=== PATIENT | female | born 1985 | race Caucasian/White ===

== ENCOUNTER 2016-06-24 20:33 | Emergency (ER) | payer OTHER ==
--- NOTE | 2016-06-24 21:01 | ER Document Report ---
ED Medical Screen (RME) - General Chief Complaint: Numbness Stated Complaint: BODY NUMBNESS Mode of Arrival: Ambulatory Information source: Patient Notes: 31-year-old female presents to the emergency department complaining of episode of confusion, right-sided peripheral vision loss, and right hand numbness approximately an hour and a half ago. Reports all symptoms have resolved except the right hand numbness and states still feels like her head is "hazy". Reports is approximately 9 weeks , , denies abdominal pain, vaginal bleeding or discharge. I have greeted and performed a rapid initial assessment of this patient. A comprehensive ED assessment and evaluation of the patient, analysis of test results and completion of the medical decision making process will be conducted by additional ED providers. TRAVEL OUTSIDE OF THE [place] IN LAST 30 DAYS: No - Related Data Allergies/Adverse Reactions: Penicillins Allergy (Verified 04/10/15 05:43) Past Medical History - Social History Chew tobacco use (# tins/day): No Frequency of alcohol use: None Drug Abuse: None Renal/ Medical History: Denies: Hx Peritoneal Dialysis Physical Exam - Vital signs Vitals: Temp Pulse Resp BP Pulse Ox 98.2 F 73 18 106/64 100 06/24/16 20:39 06/24/16 20:39 06/24/16 20:39 06/24/16 20:39 06/24/16 20:39 - General General appearance: Appears well, Alert In distress: None - Neurological Neuro grossly intact: Yes Cognition: Normal Orientation: AAOx4 Alex Coma Scale Eye Opening: Spontaneous [place] Coma Scale Verbal: Oriented [place] Coma Scale Motor: Obeys Commands Alex Coma Scale Total: 15 Speech: Normal Cranial nerves: Normal Cerebellar coordination: Normal Motor strength normal: LUE, RUE, LLE, RLE 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 Vital who recommends head CT in addition to basic labwork at this time. - Vital Signs Vital signs: Temp Pulse Resp BP Pulse Ox 98.2 F 73 18 106/64 100 06/24/16 20:39 06/24/16 20:39 06/24/16 20:39 06/24/16 20:39 06/24/16 20:39
[2016-06-24 21:09] LABS: ABSOLUTE EOSINOPHILS # (AUTO) 0.1 10^3/uL (0.0-0.6); ABSOLUTE LYMPHOCYTES (AUTO) 2.3 10^3/uL (0.5-4.7); ABSOLUTE MONOCYTES (AUTO) 0.6 10^3/uL (0.1-1.4); BASOPHILS % (AUTO) 0.5 % (0-2); EOSINOPHILS % (AUTO) 1.5 % (0-6); HEMATOCRIT 35.9 % (36.0-47.0); HEMOGLOBIN 12.4 g/dL (12.0-15.5); HGB HCT DIFFERENCE 1.3; LYMPHOCYTES % (AUTO) 32.2 % (13-45); MEAN CORPUSCULAR HEMOGLOBIN 29.5 pg (27.0-33.4); MEAN CORPUSCULAR HGB CONC 34.6 g/dL (32.0-36.0); MEAN CORPUSCULAR VOLUME 85 fl (80-97); MONOCYTES % (AUTO) 9.2 % (3-13); RED BLOOD COUNT 4.22 10^6/uL (3.72-5.28); RED CELL DISTRIBUTION WIDTH 12.7 % (11.5-14.0); SEGMENTED NEUTROPHILS % (AUTO) 56.6 % (42-78)
[2016-06-24 21:16] LABS: APPEARANCE,URINE CLEAR; BILIRUBIN,URINE NEGATIVE (NEGATIVE); GLUCOSE, URINE NEGATIVE (NEGATIVE); KETONES,URINE NEGATIVE (NEGATIVE); LEUKOCYTE ESTERASE,URINE TRACE (NEGATIVE); NITRITE,URINE NEGATIVE (NEGATIVE); PROTEIN,URINE NEGATIVE (NEGATIVE); URINE SPECIFIC GRAVITY 1.027; UROBILINOGEN,URINE NEGATIVE mg/dL (<2.0)
[2016-06-24 21:27] LABS: ALANINE AMINOTRANSFERASE 37 U/L (9-52); ALBUMIN 3.9 g/dL (3.5-5.0); ALKALINE PHOSPHATASE 41 U/L (38-126); ANION GAP 13 (5-19); ASPARTATE AMINO TRANSFERASE 22 U/L (14-36); BILIRUBIN,TOTAL 0.2 mg/dL (0.2-1.3); BLOOD UREA NITROGEN 16 mg/dL (7-20); CALCIUM 9.8 mg/dL (8.4-10.2); CARBON DIOXIDE 24 mmol/L (22-30); CHLORIDE 102 mmol/L (98-107); CREATININE RESULT 0.67 mg/dL (0.52-1.25); GLUCOSE 107 mg/dL (75-110); MAGNESIUM 1.8 mg/dL (1.6-2.3); POTASSIUM 3.7 mmol/L (3.6-5.0); SODIUM 138.8 mmol/L (137-145); TOTAL PROTEIN 6.9 g/dL (6.3-8.2)
--- NOTE | 2016-06-25 01:23 | ER Document Report ---
ED General - General Chief Complaint: Numbness Stated Complaint: BODY NUMBNESS Mode of Arrival: Ambulatory Notes: Patient is a 31-year-old female, at 9 weeks gestation, that comes emergency department for chief complaint of an episode earlier where she felt like she was losing her peripheral vision first in the right and then left eye, she states she felt very tired and and difficulty thinking and finding words, she states that she started feeling like she had a mild headache, and she states that she sat down and ate something. She states that her vision improved , she states that afterward she started feeling a tingling sensation in her right hand which also resolved. Entire episode of all symptoms lasted about 45 minutes. Patient denies any current symptoms or symptoms since that time. Patient is on vitamins, does not smoke, denies any past medical history otherwise including denying any blood clots personally or in her family that she knows about. TRAVEL OUTSIDE OF THE [place] IN LAST 30 DAYS: No - Related Data Allergies/Adverse Reactions: Penicillins Allergy (Verified 04/10/15 05:43) Past Medical History - General Information source: Patient - Social History Smoking Status: Former Smoker Chew tobacco use (# tins/day): No Frequency of alcohol use: None Drug Abuse: None Lives with: Family Family History: Reviewed & Not Pertinent Patient has suicidal ideation: No Patient has homicidal ideation: No - Medical History Medical History: Negative Renal/ Medical History: Denies: Hx Peritoneal Dialysis Surgical Hx: Negative - Immunizations Immunizations up to date: Yes Hx Diphtheria, Pertussis, Tetanus Vaccination: Yes Review of Systems - Review of Systems Constitutional: No symptoms reported EENT: No symptoms reported Cardiovascular: See HPI Respiratory: No symptoms reported Gastrointestinal: No symptoms reported Genitourinary: No symptoms reported Female Genitourinary: No symptoms reported Musculoskeletal: See HPI Skin: No symptoms reported Hematologic/Lymphatic: No symptoms reported Neurological/Psychological: See HPI Physical Exam - Vital signs Vitals: Temp Pulse Resp BP Pulse Ox 98.2 F 73 18 106/64 100 06/24/16 20:39 06/24/16 20:39 06/24/16 20:39 06/24/16 20:39 06/24/16 20:39 Interpretation: Normal - General General appearance: Appears well, Alert In distress: None - Patient smiling, alert, does have a couple of dark circles under her eyes but is otherwise very well-appearing - HEENT Head: Normocephalic, Atraumatic Eyes: Normal Conjunctiva: Normal Extraocular movements intact: Yes Eyelashes: Normal Pupils: PERRL Sinus: Normal Nasal: Normal Mouth/Lips: Normal Mucous membranes: Normal Pharynx: Normal Neck: Normal - Respiratory Respiratory status: No respiratory distress Chest status: Nontender Breath sounds: Normal. No: Decreased air movement, Nonproductive cough, Wheezing Chest palpation: Normal - Cardiovascular Rhythm: Regular. No: Tachycardia Heart sounds: Normal auscultation, S1 appreciated, S2 appreciated Murmur: No - Abdominal Inspection: Normal Distension: No distension Bowel sounds: Normal Tenderness: Nontender - Soft and benign abdomen, nontender. No: Tender, Guarding Organomegaly: No organomegaly - Back Back: Normal, Nontender - Extremities General upper extremity: Normal inspection, Normal ROM, Normal strength, Normal temperature General lower extremity: Normal inspection, Normal ROM, Normal strength, Normal temperature - Neurological Neuro grossly intact: Yes Cognition: Normal Orientation: AAOx4 Alex Coma Scale Eye Opening: Spontaneous [place] Coma Scale Verbal: Oriented Alex Coma Scale Motor: Obeys Commands [place] Coma Scale Total: 15 Speech: Normal Cranial nerves: Normal Cerebellar coordination: Normal Motor strength normal: LUE, RUE, LLE, RLE Additional motor exam normals: Equal firer retort Sensory: Normal - Psychological Associated symptoms: Normal affect, Normal mood - Skin Skin Temperature: Warm Skin Moisture: Dry Skin Color: Normal Course - Re-evaluation Re-evalutation: Patient is very well-appearing, smiling and laughing, does appear slightly fatigued but otherwise is very well-appearing. I have low suspicion of TIA in this patient based on her symptoms which seemed to change from one symptom to another and then resolved after she sat down and ate, especially since she has been 3 times before with no coagulopathy, she does not smoke, she has no past medical history, and she is young and otherwise healthy. Neurological exam is completely normal. CAT scan imaging performed in triage reviewed and shows no abnormalities. Patient has remained asymptomatic after arrival to the emergency department she tells me. Patient recommended to perform a close follow-up with her GALVANOMETER ASSEMBLER, discussed return precautions, patient states understanding and agreement. - Vital Signs Vital signs: Temp Pulse Resp BP Pulse Ox 98.8 F 75 18 101/68 100 06/25/16 02:01 06/25/16 02:01 06/25/16 02:01 06/25/16 02:01 06/25/16 02:01 - Laboratory Result Diagrams: 06/24/16 20:50 06/24/16 20:50 Laboratory results interpreted by me: 06/24/16 06/24/16 20:50 20:50 Hct 35.9 L Ur Leukocyte Esterase TRACE H Discharge - Discharge Clinical Impression: Paresthesias, Blurred vision Condition: Stable Disposition: HOME, SELF-CARE Additional Instructions: CAT scan of the head is normal, lab work shows mild dehydration but is otherwise unremarkable, neurological exam is normal. Symptoms are nonspecific, possibilities include a low blood sugar, fatigue, complex migraine, blood redistribution in , or other uncertain causes of your symptoms. Hydrate, increase rest, follow up with GALVANOMETER ASSEMBLER. If symptoms return lie down and elevate your feet first. Return to the emergency department for any returned or concerning worsening symptoms. Forms: Return to Work
[2016-06-25 02:04] VITALS: BP 101/68
== END 2016-06-25 02:05 | disposition home or self-care (01) ==
LOC: ER 20:33
DX: O26.891 Other specified pregnancy related conditions, first trimester (principal); R20.2 Paresthesia of skin; H53.8 Other visual disturbances; O26.811 Pregnancy related exhaustion and fatigue, first trimester; Z3A.09 9 weeks gestation of pregnancy; Z87.891 Personal history of nicotine dependence
CPT/HCPCS: 36415; 70450; 80053; 81001; 83735; 85025; 99284

== ENCOUNTER 2016-08-14 13:23 | Emergency (ER) | payer OTHER ==
[2016-08-14] MEDS ORDERED: NORMAL SALINE 1000 ML 1,000 ML IV ONE ×2 (13:36→13:44)
[2016-08-14] MEDS ORDERED: ONDANSETRON HCL INJ/PF 4 MG/2 ML SDV IV ONE (13:37)
--- NOTE | 2016-08-14 13:39 | ER Document Report ---
ED Medical Screen (RME) - General Chief Complaint: Nausea/Vomiting Stated Complaint: VOMITING Notes: Patient is approximately 16 weeks , G3, P1, A1, and has vomited in excess of 10 times this morning. Does not have any significant abdominal pain. No diarrhea. No fevers. No UTI symptoms. No vaginal bleeding. TRAVEL OUTSIDE OF THE [place] IN LAST 30 DAYS: No - Related Data Allergies/Adverse Reactions: Penicillins Allergy (Verified 04/10/15 05:43) Past Medical History Renal/ Medical History: Denies: Hx Peritoneal Dialysis - Immunizations Immunizations up to date: Yes Hx Diphtheria, Pertussis, Tetanus Vaccination: Yes Physical Exam - Vital signs Vitals: Temp Pulse Resp BP Pulse Ox 98.2 F 88 16 98/65 L 100 08/14/16 13:27 08/14/16 13:27 08/14/16 13:27 08/14/16 13:27 08/14/16 13:27 Course - Vital Signs Vital signs: Temp Pulse Resp BP Pulse Ox 98.2 F 88 16 98/65 L 100 08/14/16 13:27 08/14/16 13:27 08/14/16 13:27 08/14/16 13:27 08/14/16 13:27
[2016-08-14] MEDS ORDERED: METOCLOPRAMIDE HCL INJ/PF 10 MG/2 ML SDV IV ONE (13:44)
[2016-08-14 14:06] LABS: APPEARANCE,URINE SLIGHTLY-CLOUDY; BILIRUBIN,URINE NEGATIVE (NEGATIVE); GLUCOSE, URINE NEGATIVE (NEGATIVE); KETONES,URINE 80 mg/dL (NEGATIVE); LEUKOCYTE ESTERASE,URINE NEGATIVE (NEGATIVE); NITRITE,URINE NEGATIVE (NEGATIVE); PROTEIN,URINE 30 mg/dL (NEGATIVE); URINE SPECIFIC GRAVITY 1.032; UROBILINOGEN,URINE NEGATIVE mg/dL (<2.0)
--- NOTE | 2016-08-14 14:07 | ER Document Report ---
ED General - General Chief Complaint: Nausea/Vomiting Stated Complaint: VOMITING Mode of Arrival: Ambulatory Information source: Patient Notes: 31-year-old female who is 16 weeks 2 para 1 presents with complaints of multiple episodes of vomiting today. Patient admits to epigastric pain, denies any uterine pain. Denies any vaginal bleeding discharge or urinary complaints. Patient denies any fevers or chills. Patient does not have any nausea medication at home. TRAVEL OUTSIDE OF THE [place] IN LAST 30 DAYS: No - HPI Onset: This morning Onset/Duration: Sudden Quality of pain: Achy Severity: Mild Pain Level: 1 Associated symptoms: Nausea, Vomiting Exacerbated by: Denies Relieved by: Denies Similar symptoms previously: No Recently seen / treated by doctor: No - Related Data Allergies/Adverse Reactions: Penicillins Allergy (Verified 04/10/15 05:43) Past Medical History - Social History Smoking Status: Never Smoker Cigarette use (# per day): No Chew tobacco use (# tins/day): No Smoking Education Provided: No Family History: Reviewed & Not Pertinent Renal/ Medical History: Denies: Hx Peritoneal Dialysis - Immunizations Immunizations up to date: Yes Hx Diphtheria, Pertussis, Tetanus Vaccination: Yes Review of Systems - Review of Systems Notes: REVIEW OF SYSTEMS: CONSTITUTIONAL : Denies fever, chills, or sweats. Denies recent illness. EENT: Denies eye, ear, throat, or mouth pain or symptoms. Denies nasal or sinus congestion or discharge. Denies throat, tongue, or mouth swelling or difficulty swallowing. CARDIOVASCULAR: Denies chest pain. Denies palpitations or racing or irregular heart beat. Denies ankle edema. RESPIRATORY: Denies cough, cold, or chest congestion. Denies shortness of breath, difficulty breathing, or wheezing. GASTROINTESTINAL: Admits nausea vomiting GENITOURINARY: Denies difficulty urinating, painful urination, burning, frequency, blood in urine, or discharge. FEMALE GENITOURINARY: Denies vaginal bleeding, heavy or abnormal periods, irregular periods. Denies vaginal discharge or odor. MUSCULOSKELETAL: Denies back or neck pain or stiffness. Denies joint pain or swelling. SKIN: Denies rash, lesions or sores. HEMATOLOGIC : Denies easy bruising or bleeding. LYMPHATIC: Denies swollen, enlarged glands. NEUROLOGICAL: Denies confusion or altered mental status. Denies passing out or loss of consciousness. Denies dizziness or lightheadedness. Denies headache. Denies weakness or paralysis or loss of use of either side. Denies problems with gait or speech. Denies sensory loss, numbness, or tingling. Denies seizures. PSYCHIATRIC: Denies anxiety or stress. Denies depression, suicidal ideation, or homicidal ideation. ALL OTHER SYSTEMS REVIEWED AND NEGATIVE. Dictation was performed using [employer] voice recognition software PHYSICAL EXAMINATION: GENERAL: Well-appearing, well-nourished and in no acute distress. HEAD: Atraumatic, normocephalic. EYES: Pupils equal round and reactive to light, extraocular movements intact, conjunctiva are normal. ENT: Nares patent, oropharynx clear without exudates. Moist mucous membranes. NECK: Normal range of motion, supple without lymphadenopathy LUNGS: Breath sounds clear to auscultation bilaterally and equal. No wheezes rales or rhonchi. HEART: Regular rate and rhythm without murmurs ABDOMEN: Soft, nontender, nondistended abdomen. No guarding, no rebound. No masses appreciated. Female : deferred Musculoskeletal: Normal range of motion, no pitting or edema. No cyanosis. NEUROLOGICAL: Cranial nerves grossly intact. Normal speech, normal gait. Normal sensory, motor exams PSYCH: Normal mood, normal affect. SKIN: Warm, Dry, normal turgor, no rashes or lesions noted. Physical Exam - Vital signs Vitals: Temp Pulse Resp BP Pulse Ox 98.2 F 88 16 98/65 L 100 08/14/16 13:27 08/14/16 13:27 08/14/16 13:27 08/14/16 13:27 08/14/16 13:27 Course - Re-evaluation Re-evalutation: 08/14/16 14:07 Well-appearing female no acute distress, will be treated for her nausea and vomiting IV fluids have been ordered 08/14/16 15:28 Patient notes significant improvement of symptoms, has been able to eat and drink with no difficulty wishes to be discharged home After performing a Medical Screening Examination, I estimate there is LOW risk for ACUTE APPENDICITIS, BOWEL OBSTRUCTION, ACUTE CHOLECYSTITIS, PERFORATED DIVERTICULITIS, INCARCERATED HERNIA, PANCREATITIS, PELVIC INFLAMMATORY DISEASE, PERFORATED ULCER, ECTOPIC , or TUBO-OVARIAN ABSCESS, thus I consider the discharge disposition reasonable. Also, there is no evidence or peritonitis , sepsis, or toxicity. I have reevaluated this patient multiple times and no significant life threatening changes are noted. The patient and I have discussed the diagnosis and risks, and we agree with discharging home with close follow-up with the understanding that symptoms and presentations can change. We also discussed returning to the Emergency Department immediately if new or worsening symptoms occur. We have discussed the symptoms which are most concerning (e.g., bloody stool, fever, changing or worsening pain, vomiting) that necessitate immediate return. - Vital Signs Vital signs: Temp Pulse Resp BP Pulse Ox 98.2 F 88 16 98/65 L 100 08/14/16 13:27 08/14/16 13:27 08/14/16 13:27 08/14/16 13:27 08/14/16 13:27 - Laboratory Laboratory results interpreted by me: 08/14/16 13:40 Urine Protein 30 H Urine Ketones 80 H Urine Ascorbic Acid 40 H Discharge - Discharge Clinical Impression: Nausea and vomiting during prior to 22 weeks gestation Condition: Stable Disposition: HOME, SELF-CARE Instructions: Vomiting ([facility]) Prescriptions: Metoclopramide HCl [Reglan 10 mg Tablet] 1 - 2 tab PO ASDIR PRN #25 tablet PRN Reason: Promethazine HCl [Phenergan 25 mg Tablet] 1 - 2 tab PO Q6H PRN #15 tablet PRN Reason: Referrals: ROSA WALDEN DO [Primary Care Provider] - Follow up in 3-5 days
[2016-08-14 15:43] VITALS: BP 92/58
== END 2016-08-14 15:40 | disposition home or self-care (01) ==
LOC: ER 13:23
DX: R11.2 Nausea with vomiting, unspecified (principal); R10.13 Epigastric pain; Z33.1 Pregnant state, incidental
CPT/HCPCS: 99284; 96374; 82962; 81001; J2765; J7030

== ENCOUNTER 2017-01-31 16:38 | Outpatient (CLI) | payer OTHER ==
[2017-01-31 17:36] LABS: APPEARANCE,URINE CLEAR; BILIRUBIN,URINE NEGATIVE (NEGATIVE); GLUCOSE, URINE NEGATIVE (NEGATIVE); KETONES,URINE NEGATIVE (NEGATIVE); LEUKOCYTE ESTERASE,URINE NEGATIVE (NEGATIVE); NITRITE,URINE NEGATIVE (NEGATIVE); PROTEIN,URINE NEGATIVE (NEGATIVE); URINE SPECIFIC GRAVITY 1.005; UROBILINOGEN,URINE NEGATIVE mg/dL (<2.0)
[2017-01-31 17:54] LABS: URINE BARBITURATES SCREEN NEGATIVE; URINE METHADONE SCREEN NEGATIVE; URINE OPIATES LOW NEGATIVE; URINE PHENCYCLIDINE SCREEN NEGATIVE
--- NOTE | 2017-01-31 18:09 | Non Stress Test Report ---
Non Stress Test Datetime Report Generated by CPN: 01/31/2017 18:09 DEMOGRAPHIC EGA NST: 40.2 INDICATION Indication for Study: Ordered by Provider Indication for Study (NST) Other: LC MONITORING Monitor Explained: Monitor Explained; Test Explained; Patient Verbalized Understanding Monitor Explained: Monitor Explained; Test Explained; Patient Verbalized Understanding Time on Monitor: 01/31/2017 17:02 Time on Monitor: 01/31/2017 17:02 Time off Monitor: 01/31/2017 17:25 Time off Monitor: 01/31/2017 17:22 NST Duration: 23 NST Duration: 20 NST INTERVENTIONS NST Interventions: PO Hydration Physician Notified NST: Dr Jaime BABY A: [id number] BABY A Movement : Present Movement : Present Contraction Frequency : 3-4 FHR Baseline : 130 Accelerations : 15X15 Accelerations : 15X15 Decelerations : None Decelerations : None Variability : Moderate 6-25bpm Variability : Moderate 6-25bpm NST Review: Meets Criteria for Reactive NST NST Review: Meets Criteria for Reactive NST NST Review and Verified By : Kurtis Ramos RNC NST Results: Reactive NST Results: Reactive NST REPORT Report Trigger: Send Report
== END 2017-01-31 19:12 | disposition home or self-care (01) ==
LOC: LC 16:38
PROVIDERS: ATTEND Obstetrics & Gynecology
PROC: 4A1HXCZ Monitoring of Products of Conception, Cardiac Rate, External Approach (ICD-10-PCS; principal; 2017-01-31)
DX: O47.1 False labor at or after 37 completed weeks of gestation (principal); Z3A.40 40 weeks gestation of pregnancy
CPT/HCPCS: 59025; 80307; 81005

== ENCOUNTER 2017-02-01 06:15 | Inpatient (IN) | payer OTHER ==
[2017-02-01] MEDS ORDERED: RINGERS SOLUTION,LACTATED 1,000 ML IV PRN (06:38)
[2017-02-01] MEDS ORDERED: VANCOMYCIN HCL 1,000 MG in DEXTROSE 5%-WATER 250 ML IV SCH (06:45)
[2017-02-01] MEDS ORDERED: VANCOMYCIN HCL INJ 1000 MG VIAL ONE (06:48)
[2017-02-01 07:20] LABS: APPEARANCE,URINE SLIGHTLY-CLOUDY; BILIRUBIN,URINE NEGATIVE (NEGATIVE); GLUCOSE, URINE NEGATIVE (NEGATIVE); KETONES,URINE NEGATIVE (NEGATIVE); LEUKOCYTE ESTERASE,URINE NEGATIVE (NEGATIVE); NITRITE,URINE NEGATIVE (NEGATIVE); PROTEIN,URINE 30 mg/dL (NEGATIVE); URINE SPECIFIC GRAVITY 1.016; UROBILINOGEN,URINE NEGATIVE mg/dL (<2.0)
[2017-02-01 07:32] LABS: ABSOLUTE EOSINOPHILS # (AUTO) 0.1 10^3/uL (0.0-0.6); ABSOLUTE LYMPHOCYTES (AUTO) 1.8 10^3/uL (0.5-4.7); ABSOLUTE MONOCYTES (AUTO) 0.7 10^3/uL (0.1-1.4); ABSOLUTE NEUT (AUTO) 6.7 10^3/uL (1.7-8.2); BASOPHILS % (AUTO) 0.3 % (0-2); EOSINOPHILS % (AUTO) 0.7 % (0-6); HEMATOCRIT 33.5 % (36.0-47.0); HEMOGLOBIN 11.5 g/dL (12.0-15.5); LYMPHOCYTES % (AUTO) 19.6 % (13-45); MEAN CORPUSCULAR HEMOGLOBIN 28.7 pg (27.0-33.4); MEAN CORPUSCULAR HGB CONC 34.4 g/dL (32.0-36.0); MEAN CORPUSCULAR VOLUME 84 fl (80-97); MONOCYTES % (AUTO) 7.5 % (3-13); RED BLOOD COUNT 4.01 10^6/uL (3.72-5.28); RED CELL DISTRIBUTION WIDTH 13.7 % (11.5-14.0); SEGMENTED NEUTROPHILS % (AUTO) 71.9 % (42-78); WHITE BLOOD COUNT 9.3 10^3/uL (4.0-10.5)
[2017-02-01] MEDS ORDERED: EPHEDRINE SULFATE INJ 50 MG/1 ML AMPULE ONE (07:36)
[2017-02-01] MEDS ORDERED: MISOPROSTOL 0.2 MG TABLET ONE (07:36)
[2017-02-01] MEDS ORDERED: LIDOCAINE 1% INJ-PF (10 MG/ML) 30 ML SDV ONE (07:37)
[2017-02-01] MEDS ORDERED: BUPIVACAINE HCL 0.25 % INJ/PF (2.5 MG/1 ML) 30 ML VIAL ONE (07:37)
[2017-02-01] MEDS ORDERED: FENTANYL/BUPIVACAINE/NS/PF 200 MCG/100 ML RTUINJ EPI ONE (07:37)
[2017-02-01] MEDS ORDERED: OXYTOCIN/NORMAL SALINE 20 UNIT/1,000 ML RTUINJ ONE (07:37)
[2017-02-01 07:56] LABS: URINE BARBITURATES SCREEN NEGATIVE; URINE METHADONE SCREEN NEGATIVE; URINE OPIATES LOW NEGATIVE; URINE PHENCYCLIDINE SCREEN NEGATIVE
[2017-02-01] MEDS ORDERED: PROMETHAZINE HCL 25 MG TABLET PO PRN (11:36)
[2017-02-01] MEDS ORDERED: OXYTOCIN/NORMAL SALINE 20 UNIT/1,000 ML RTUINJ IV PRN (11:36)
[2017-02-01] MEDS ORDERED: MEASLES,MUMPS&RUBELLA VACC/PF 0.5 ML VIAL SUBCUT PRN (11:36)
[2017-02-01] MEDS ORDERED: GLYCERIN/WITCH HAZEL LEAF 1 EACH MED..PAD TP PRN (11:36)
[2017-02-01] MEDS ORDERED: DIBUCAINE 1% OINTMENT 28 GM TP PRN (11:36)
[2017-02-01] MEDS ORDERED: PROMETHAZINE HCL 25 MG SUPP.RECT PR PRN (11:36)
[2017-02-01] MEDS ORDERED: ACETAMINOPHEN WITH CODEINE #3 TABLET PO PRN ×2 (11:36)
[2017-02-01] MEDS ORDERED: DIPH/PERTUSS(ACELL)/TETANUS VAC/PF 0.5 ML SYR (>=10YO) IM PRN (11:36)
[2017-02-01] MEDS ORDERED: ACETAMINOPHEN 650 MG SUPP.RECT PR PRN (11:36)
[2017-02-01] MEDS ORDERED: MAGNESIUM HYDROXIDE SUSP 30 ML UDCUP PO PRN (11:36)
[2017-02-01] MEDS ORDERED: NA PHOS,M-B/NA PHOS,DI-BA (ADULT) 133 ML ENEMA PR PRN (11:36)
[2017-02-01] MEDS ORDERED: BENZOCAINE/MENTHOL AEROSOL SPRAY 56 ML TOP PRN (11:36)
[2017-02-01] MEDS ORDERED: PROMETHAZINE HCL INJ 25 MG/1 ML VIAL IV PRN (11:36)
[2017-02-01] MEDS ORDERED: DIPHENHYDRAMINE HCL 25 MG CAPSULE PO PRN (11:36)
[2017-02-01] MEDS ORDERED: PSEUDOEPHEDRINE HCL 30 MG TABLET PO PRN (11:36)
[2017-02-01] MEDS ORDERED: ZOLPIDEM TARTRATE 5 MG TABLET PO PRN (11:36)
--- NOTE | 2017-02-01 12:12 | Delivery Summary ---
Del Sum A-C Datetime Report Generated by CPN: 02/01/2017 12:11 DELIVERY PERSONNEL DELIVERY PERSONNEL: [id number] Nurse Assembler Adjuster Certified:: Alaina Chicas CNM Labor and Delivery Nurse:: Lachelle Chisholm RN Labor and Delivery Nurse:: MATT Heck Rayon Winder/BUSHEL GIRL: Winifred Semar, ORCHID SUPERINTENDENT MATERNAL INFORMATION Delivery Anesthesia: Epidural Medications After Delivery: Pitocin Drip 20 Units/1000ml NSS Estimated Blood Loss (ml): 300 Maternal Complications: None Provider Comments: Called to room 1 for deliver. of live female in vertex OA to BRIAN at 1110 under epidural anestheia. Spontaneous respirations and cry. 3 vessel cord. Apgars 8-8. Cord clamped x2, after 2 min delay, then cut by FOB. Placenta, membranes, and cord expelled at 1115, Berg presentation. Small skid dary suprautethral, no repair needed. Cytotec per rectum as bleeding heavier than desired with Pitocin. Patient tolerated procedure well. LABOR SUMMARY EDC: 01/29/2017 00:00 No. Babies in Womb: 1 Attempted: No Labor Anesthesia: Epidural LABOR INFORMATION Reason for Induction: Not Applicable Onset of Labor: 02/01/2017 06:33 Complete Dilatation: 02/01/2017 10:17 Oxytocin: N/A Group B Beta Strep: Positive Antibiotics # of Doses: 1 Antibiotics Time of Last Dose: 656 Name of Antibiotic Given: 1 Steroids Given: None Reason Steroids Not Administered: Not Applicable MEMBRANES Membranes Rupture Method: Spontaneous Rupture of Membranes: 02/01/2017 05:07 Length of Rupture (hr): 6.05 Amniotic Fluid Color: Clear Amniotic Fluid Amount: Small Amniotic Fluid Odor: Normal STAGES OF LABOR Stage 1 hr: 3 Stage 1 min: 44 Stage 2 hr: 0 Stage 2 min: 53 Stage 3 hr: 0 Stage 3 min: 5 Total Time in Labor hr: 4 Total Time in Labor min: 42 VAGINAL DELIVERY Episiotomy: None Laceration #1: None Laceration Extension #1: N/A Laceration Repair: Not Applicable Sponge Count Correct: N/A Sharps Count Correct: Yes BABY A INFORMATION Delivery Date/Time: 02/01/2017 11:10 Method of Delivery: Vaginal Born in Route : No : N/A Forceps: N/A Vacuum Extraction: N/A Shoulder Dystocia : No PRESENTATION/POSITION BABY A Presentation: Cephalic Cephalic Presentation: Vertex Vertex Position: Right Occipital Anterior Breech Presentation: N/A PLACENTA INFORMATION BABY A Placenta Delivery Time : 02/01/2017 11:15 Placenta Method of Delivery: Spontaneous Placenta Status: Delivered SCORES BABY A Heart Rate 1 min: >100 bpm Resp Effort 1 min: Slow, Irregular Reflex Irritability 1 min: Cough or Sneeze or Pulls Away Muscle Tone 1 min: Active Motion Color 1 min: Body [place], Extremities Blue Resuscitation Effort 1 min: N/A SCORE 1 MIN: 8 Heart Rate 5 min: >100 bpm Resp Effort 5 min: Slow, Irregular Reflex Irritability 5 min: Cough or Sneeze or Pulls Away Muscle Tone 5 min: Active Motion Color 5 min: Body [place], Extremities Blue Resuscitation Effort 5 min: N/A SCORE 5 MIN: 8 INFORMATION BABY A Gestational Age at Delivery: 40.3 Gestational Status: Full Term- 39- 40.6 Weeks Outcome : Liveborn Condition : Stable Sex: Female IDENTIFICATION BABY A Verification Date/Time: 02/01/2017 11:28 ID Band Number: [id number] Mother's Name Verified: Yes Infant RN Verifying : Hermelinda Kathrine, RN/José Antonio Vital, RN CORD INFORMATION BABY A No. Cord Vessels: 3 Nuchal Cord : N/A Cord Blood Taken: Yes-For Storage (Mom's Blood type +) Suction: None ASSESSMENT BABY A Complications: None Physical Findings at Delivery: Within Normal Limits Infant Respirations: Appears Normal Skin to Skin: Yes Skin to Skin Time (min): 55 Head Filter Press Tender/ALS Called : No Care By: Hermelinda Donnelly RN Transferred To: Remains with Mother SIGNATURES Assignment: Mariela Sinclair MD Signature: with User ID: [email or web address] : I personally evaluated and examined the patient in conjunction with the MLP and agree with the assessment, treatment plan and disposition.
--- NOTE | 2017-02-01 13:45 | Admission Physical ---
Datetime Report Generated by CPN: 02/01/2017 13:45 CURRENT ADMISSION Chief Complaint: Suspected Ruptured Membranes Indication for Induction: Not Applicable Indication for Induction: Postterm, Intrauterine ; No Active Labor; Ruptured Membranes Admit Plan: Admit to Unit; Initiate Labor Augmentation Protocol ALLERGIES Medication Allergies: Yes Medication Allergies: Penicillins (01/31/2017) Medication Allergies: Penicillins (04/10/2015) Latex: No Latex Allergies OBSTETRICAL HISTORY EDC: 01/29/2017 00:00 : 3 Para: 1 Term: 1 : 0 SAB: 1 IAB: 0 Livin Gestational Diabetes: No Rh Sensitization: No Incompetent Cervix: No GUI: No Infertility: No ART Treatment: No Uterine Anomaly: No IUGR: No Hx Previous C/S: No Macrosomia: No Hx Loss/Stillborn: No PIH: No Hx : No Placenta Previa/Abruption: No Depression/PP Depression: No PTL/PROM: No Post Hemorrhage: No Current Procedures: Ultrasound; NST Obstetrical History Comments: G1: 05/2014, SAB G2: 04/10/15, , 39.5 weeks, Female, Epidural, 8#1oz G3: current SEE RECORDS Alcohol: No Marijuana : No Cocaine: No Other Illicit Drugs: No Cigarettes: Never Smoker. 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 Surgery: Yes Heart Disease: No Hosp/Surgery: No Autoimmune Disorder: No Anesthetic Complications: No Kidney Disease: No Abnormal Pap Smear: Yes Neuro/Epilepsy: No Psychiatric Disorders: No Other Medical Diseases: No Hepatitis/Liver Disease: No Significant Family History: No Varicosities/Phlebitis: No Trauma/Violence : No Thyroid Dysfunction: No Medical History Comments: Abnormal pap 05/2014, colpo 2014, abnormal pap 2016 INFECTIOUS HISTORY Gonorrhea: No Genital Herpes: No Chlamydia: No Tuberculosis: No Syphilis: No Hepatitis: No HIV/AIDS Exposure: No Rash or Viral Illness: No HPV: No PHYSICAL EXAM General: Normal HEENT: Normal Neurologic: Normal Thyroid: Deferred Heart: Normal Lungs: Normal Breast: Deferred Back: Normal Abdomen: Normal Genitourinary Exam: Normal Extremities: Normal DTRs: Normal Pelvic Type: Adequate Vital Signs: Reviewed; Within Normal Limits VAGINAL EXAM Dilatation: 4 Effacement: 60 Station: -1 MEMBRANES Pooling: Positive Membranes: Ruptured Amniotic Fluid Color: Clear FETUS A EGA: 40.3 Monitoring: External US FHR- Baseline: 140 Variability: Moderate 6-25bpm Accelerations: 15X15 Decelerations: None FHR Category: Category I Presentation: Vertex Admit Comment: Vancomycin for +GBS status PLANS FOR LABOR AND DELIVERY Labor and Delivery: None Pain Management: Epidural Feeding Preference: Breast Benefit of Breast Feed Discussed: Yes Circumcision: N/A INFORMED CONSENT Signature: with User ID: [email or web address] : I personally evaluated and examined the patient in conjunction with the MLP and agree with the assessment, treatment plan and disposition.
[2017-02-01] MEDS: IBUPROFEN 800 MG TABLET PO SCH ×2 (13:58→21:11)
[2017-02-01] MEDS: FERROUS SULFATE 325 MG TABLET PO SCH (17:39)
[2017-02-01] MEDS: DOCUSATE SODIUM 100 MG CAPSULE PO SCH (17:39)
[2017-02-01] MEDS: FAMOTIDINE 20 MG TABLET PO SCH (21:12)
[2017-02-02] MEDS: IBUPROFEN 800 MG TABLET PO SCH ×3 (05:42→21:07)
[2017-02-02 08:12] LABS: HEMATOCRIT 29.2 % (36.0-47.0); HEMOGLOBIN 10.1 g/dL (12.0-15.5); HGB HCT DIFFERENCE 1.1; MEAN CORPUSCULAR HEMOGLOBIN 29.2 pg (27.0-33.4); MEAN CORPUSCULAR HGB CONC 34.6 g/dL (32.0-36.0); MEAN CORPUSCULAR VOLUME 84 fl (80-97); RED BLOOD COUNT 3.47 10^6/uL (3.72-5.28); RED CELL DISTRIBUTION WIDTH 13.4 % (11.5-14.0); WHITE BLOOD COUNT 9.9 10^3/uL (4.0-10.5)
--- NOTE | 2017-02-02 08:44 | PDOC PROGRESS REPORT ---
Subjective-OB Subjective: Post Delivery Day: 1 31 year old. Denies any needs at this time, states lochia is stable, pain well controlled, voiding without difficulty. Physical Exam (OB) Vital Signs: Temp Pulse Resp BP Pulse Ox 98.8 F 93 18 115/61 99 02/01/17 19:00 02/01/17 19:00 02/01/17 19:00 02/01/17 19:00 02/01/17 19:00 - PIH/Pre-Eclampsia Clonus: Negative Headache: Absent Epigastric Pain: No Visual Changes: No - Lochia Lochia Amount: Small 10-25 ml Lochia Color: Rubra/Red - Abdomen Description: Soft Hernia Present: No Fundal Description: Firm, Midline Fundal Height: u/u - u/2 Objective-Diagnostic Laboratory: 02/02/17 07:30 02/02/17 07:30 WBC 9.9 RBC 3.47 L Hgb 10.1 L Hct 29.2 L MCV 84 MCH 29.2 MCHC 34.6 RDW 13.4 Plt Count 215 Assessment and Plan(PN) - Assessment and Plan (1) Anemia due to acute blood loss Is this a current diagnosis for this admission?: Yes Plan: ferrous sulfate increase dietary iron (2) Normal vaginal delivery Is this a current diagnosis for this admission?: Yes Plan: routine post care - Time Spent with Patient Time with patient: Less than 15 minutes Critical Time spent with patient: Less than 15 minutes Medications reviewed and adjusted accordingly: Yes - Disposition Anticipated Discharge: Home Within: within 24 hours
[2017-02-02] MEDS: SENNOSIDES/DOCUSATE 8.6-50 MG 1 EACH TABLET PO SCH (11:40)
[2017-02-02] MEDS: FERROUS SULFATE 325 MG TABLET PO SCH ×2 (11:40→17:20)
[2017-02-02] MEDS: PRENATAL VITAMIN W-O CA NO5/FE FUMARATE/FA CAPSULE PO SCH (11:41)
[2017-02-02] MEDS: FAMOTIDINE 20 MG TABLET PO SCH ×2 (11:41→21:07)
[2017-02-02] MEDS: DOCUSATE SODIUM 100 MG CAPSULE PO SCH ×2 (11:41→17:21)
[2017-02-02] MEDS ORDERED: INFLUENZA ADLT QUAD (36MOS+) 2017-18 VAC 0.5 ML SYR IM PRN (13:52)
[2017-02-03] MEDS: IBUPROFEN 800 MG TABLET PO SCH ×2 (05:41→13:20)
[2017-02-03] MEDS: FAMOTIDINE 20 MG TABLET PO SCH (09:39)
[2017-02-03] MEDS: PRENATAL VITAMIN W-O CA NO5/FE FUMARATE/FA CAPSULE PO SCH (09:39)
[2017-02-03] MEDS: FERROUS SULFATE 325 MG TABLET PO SCH (09:39)
[2017-02-03] MEDS: DOCUSATE SODIUM 100 MG CAPSULE PO SCH (09:39)
[2017-02-03] MEDS: SENNOSIDES/DOCUSATE 8.6-50 MG 1 EACH TABLET PO SCH (09:39)
--- NOTE | 2017-02-03 13:01 | PDOC DISCHARGE SUMMARY ---
Final Diagnosis Discharge Date: 02/03/17 - Final Diagnosis (1) Anemia due to acute blood loss Is this a current diagnosis for this admission?: Yes (2) Normal vaginal delivery Is this a current diagnosis for this admission?: Yes Discharge Data - Discharge Medication Home Medications: Vit/Iron Fum/Folic AC [ Tablet] 1 tab PO DAILY 04/10/15 Reason(s) for Admission: Onset of Labor Procedures: NST Intrapartum Procedure(s): Spontaneous Vaginal Delivery Complication(s): Laceration-Periurethral Laceration-Degree: 1st - Diagnosis Test Laboratory: Temp Pulse Resp BP Pulse Ox 98.5 F 74 16 121/72 100 02/03/17 08:23 02/03/17 08:23 02/03/17 08:23 02/03/17 08:23 02/03/17 08:23 02/01/17 02/01/17 02/02/17 06:27 06:56 07:30 RBC 4.01 3.47 L Hgb 11.5 L 10.1 L Hct 33.5 L 29.2 L Urine Opiates Screen NEGATIVE - Discharge information/Instructions Discharge Activity: Balance Activity w/Rest, Pelvic Rest Discharge Diet: Regular Disposition: HOME, SELF-CARE Follow up with: [facility] in: 4, Weeks
[2017-02-03 13:05] VITALS: BP 111/64
== END 2017-02-03 14:07 | disposition home or self-care (01) | DRG 775 ==
LOC: LC 06:15 → LR 06:37 → 2S 13:43
PROVIDERS: ADMIT Obstetrics & Gynecology; ATTEND Obstetrics & Gynecology
PROC: 10E0XZZ Delivery of Products of Conception, External Approach (ICD-10-PCS; principal; 2017-02-01)
PROC: 0HQ9XZZ Repair Perineum Skin, External Approach (ICD-10-PCS; 2017-02-01)
PROC: 3E0234Z Introduction of Serum, Toxoid and Vaccine into Muscle, Percutaneous Approach (ICD-10-PCS; 2017-02-03)
DX: O99.824 Streptococcus B carrier state complicating childbirth (principal); D62 Acute posthemorrhagic anemia; O99.344 Other mental disorders complicating childbirth; O99.02 Anemia complicating childbirth; F41.9 Anxiety disorder, unspecified; O48.0 Post-term pregnancy; O71.82 Other specified trauma to perineum and vulva; Z3A.40 40 weeks gestation of pregnancy; Z37.0 Single live birth; Z23 Encounter for immunization
CPT/HCPCS: 36415; 80307; 81005; 85025; 85027; 86592; 86850; 86900; 86901; 88307; 90686; 94760; J2590; J3370; J3490

== ENCOUNTER → 2018-03-15 | Outpatient (CLI) | payer OTHER ==
--- NOTE | 2018-03-15 14:35 | RADIOLOGY REPORT (SQ) ---
EXAM DESCRIPTION: CT LT LOWER EXTREMITY WITHOUT COMPLETED DATE/TIME: 03/15/2018 2:21 pm REASON FOR STUDY: S92.335A NONDISP FX OF THIRD METATARSAL BONE, LEFT FOOT, INIT S92.335A NONDISP FX OF THIRD METATARSAL BONE, LEFT FOOT, INI COMPARISON: None. TECHNIQUE: Axial imaging performed through the left foot with reformatted coronal and sagittal imagi ng windowed for bone and soft tissues. Images saved to PACS. 3D IMAGING: Were 3D images as MIP, SSD, or volume rendering performed at the work station? Yes. All CT scanners at this facility use dose modulation, iterative reconstruction, and/or weight based d osing when appropriate to reduce radiation dose to as low as reasonably achievable (ALARA). [facility]: Dose Right [facility]: CareDose [facility]: Dose Right [facility]: Teradose 4D [facility]: [employer] LIMITATIONS: None. RADIATION DOSE: CT Rad equipment meets quality standard of care and radiation dose reduction techniq ues were employed. CTDIvol: 4.6 mGy. DLP: 109 mGy-cm. mGy. FINDINGS: SOFT TISSUES: No foreign body. BONES: Oblique, nondisplaced fracture distal 5th metatarsal metadiaphysis. No other fracture identif ied. Lisfranc joints intact. MINERALIZATION: Normal. OTHER: No other significant finding. IMPRESSION: Fracture distal 5th metatarsal. TECHNICAL DOCUMENTATION: JOB ID: [id number] Quality ID # [id number]: Final reports with documentation of one or more dose reduction techniques (e.g., Au tomated exposure control, adjustment of the mA and/or kV according to patient size, use of iterative reconstruction technique) 2010 [employer]- All Rights Reserved Reading location - IP/workstation name: [email or web address]
== END ==
LOC: RAD 15:07
PROVIDERS: ATTEND Physician Assistant
DX: S92.335A Nondisplaced fracture of third metatarsal bone, left foot, initial encounter for closed fracture (principal); X58.XXXA Exposure to other specified factors, initial encounter